=== PATIENT | male | born 1955 | race Caucasian/White ===

== ENCOUNTER → 2020-08-20 10:25 | Outpatient (CLI) | payer MEDICARE, OTHER, SELFPAY ==
--- NOTE | 2020-08-20 | DI.MRI.S_ITS ---
PROCEDURE: MR THORACIC SPINE WO CON INDICATIONS: Scoliosis, unspecified,Spinal stenosis, lumbar reg TECHNIQUE: Noncontrast sagittal T1 spine echo and T2 fast spin echo, sagittal STIR, axial T1 and T2 fast spin echo through the thoracic spine. COMPARISON: None. FINDINGS: Image quality: Excellent. Alignment and Curvature: There is trace anterolisthesis of C7 on T1, T1 on T2, T2 on T3. Bone Marrow: Marrow is of normal overall signal. Minimal to mild reactive endplate changes are present within the lower cervical spine as well as T4-5, T5-6, T6-7. No acute vertebral body compression fractures. Spinal Cord: Visualized spinal cord is normal in size and signal. Paraspinous Soft Tissues: No paravertebral masses. Miscellaneous: On axial images, central canal and foramina appear widely patent at all scanned levels. Right asymmetric disc bulges present at T3-4, T4-5, minimal bulge T5-6, T7-8, T8-9, T10-11. There is minimal to mild bilateral foraminal narrowing at T1-T2, T2-3, new right T4-5, bilateral T7-8, T8-9, T10 11, right T11-12. IMPRESSION: 1. Multilevel minimal to mild bilateral foraminal narrowing. 2. Multilevel minimal disc bulges. Dictated by: Kiara Razo M.D. on 08/22/2020 at 11:28 Approved by: Kiara Razo M.D. on 08/22/2020 at 11:45
--- NOTE | 2020-08-20 | DI.MRI.S_ITS ---
PROCEDURE: MR LUMBAR SPINE WO CON INDICATIONS: Scoliosis, unspecified,Spinal stenosis, lumbar reg TECHNIQUE: Noncontrast sagittal T1 spin echo and T2 fast echo, sagittal STIR, axial T1 and T2 fast spin echo through the lumbar spine. In cases with scoliosis, additional coronal T2 fast spin echo may be performed. COMPARISON: [facility] [place], [place], XR LUMBAR SPINE WITH OLBIQUES PLUS FLEXION EXTENSION, 08/12/2020, 16:41. FINDINGS: Image quality: Excellent. Alignment and Curvature: There is trace retrolisthesis of L2 on L3, L3 on L4, grade 1 retrolisthesis of L5 on S1 and trace anterolisthesis of L4 on L5. Bone Marrow: Marrow is of normal overall signal. Minimal to mild reactive endplate changes are present at L1-2 through L4-5, [id number] at L5-S1. No acute vertebral body compression fractures. Spinal Cord: Conus medullaris terminates at the L1 level. Visualized cord demonstrates normal signal and size. Paraspinous Soft Tissues: No paravertebral masses. Discs: Severe desiccation is present throughout the lumbar spine from L2-3 through L5-S1, moderate to severe at L1-L2. L1-L2: Mild disc bulge with severe spinal stenosis. Minimal left foraminal narrowing. Mild epidural lipomatosis as well as facet/ligamentum flavum hypertrophy. L2-L3: Mild disc bulge with mild spinal stenosis. Moderate left and [id number] right foraminal narrowing with facet and ligamentum flavum hypertrophy. Minimal epidural lipomatosis. L3-L4: Mild disc bulge with moderate to severe spinal stenosis. Severe left and moderate right foraminal narrowing with slight nerve root flattening on the left. Facet and ligamentum flavum hypertrophy are present. L4-L5: Mild disc bulge with moderate spinal stenosis. Moderate to severe bilateral foraminal narrowing with facet and ligamentum flavum hypertrophy. L5-S1: Mild disc bulge with minimal spinal stenosis. Severe bilateral foraminal narrowing with nerve root flattening, severe on the right. Facet and ligamentum flavum hypertrophy are present. IMPRESSION: 1. Significant multilevel degenerative changes. 2. Multilevel disc bulges. 3. Multilevel spinal stenosis, severe at L1-L2 and moderate to severe at L3-4, L4-5 secondary to disc bulge with contributing affective facet/ligamentum flavum arthropathy and epidural lipomatosis. 4. Multilevel foraminal narrowing most severe at L3-4 and L5-S1 with nerve root flattening secondary to facet arthropathy as well as retrolisthesis. Dictated by: Kiara Razo M.D. on 08/22/2020 at 11:46 Approved by: Kiara Razo M.D. on 08/22/2020 at 12:19
== END ==
PROVIDERS: Referring Provider Physical Medicine & Rehabilitation; Visit Provider Physical Medicine & Rehabilitation
DX: M48.062 Spinal stenosis, lumbar region with neurogenic claudication (principal); M48.07 Spinal stenosis, lumbosacral region; M51.26 Other intervertebral disc displacement, lumbar region; M47.816 Spondylosis without myelopathy or radiculopathy, lumbar region; M47.817 Spondylosis without myelopathy or radiculopathy, lumbosacral region; M41.9 Scoliosis, unspecified; E88.2 Lipomatosis, not elsewhere classified
CPT/HCPCS: 72146; 72148